=== PATIENT | male | born 1970 | race Caucasian/White ===

== ENCOUNTER 2023-06-14 14:02 | Emergency (ER) | payer MEDICAID ==
[~2023-06-14] VITALS: Ht 172.7 cm; Wt 90.9 kg
[2023-06-14 14:26] VITALS: TEMP 98.7
[2023-06-14] MEDS ORDERED: cloNIDine 0.1 mg tablet PO ONE ×2 (14:50→15:50)
[2023-06-14] MEDS ORDERED: SULF1TAB49 PO (15:34)
[2023-06-14] MEDS ORDERED: CEPH-585 PO (15:34)
[2023-06-14 16:40] VITALS: BP 196/111; PULSE 82; RESP 18; O2SAT 98
== END 2023-06-14 16:25 | disposition home or self-care (01) ==
LOC: ER 14:03
DX: L03.115 Cellulitis of right lower limb (principal); I10 Essential (primary) hypertension
CPT/HCPCS: 99283